=== PATIENT | female | born 1990 | race Caucasian/White ===

== ENCOUNTER 2019-04-07 11:27 | Inpatient (IN) | payer OTHER ==
[~2019-04-07] VITALS: Ht 149.9 cm; Wt 90.5 kg
[2019-04-13] MEDS: D5%-LACTATED RINGERS 1,000 ML IV SCH ×2 (06:50→14:50)
[2019-04-13] MEDS ORDERED: OXYTOCIN 30U/ 0.9% NaCL 500ML 500 ML IV ONE (06:50)
[2019-04-13] MEDS ORDERED: ONDANSETRON 2MG/ML, 2ML IVPush PRN (07:00)
[2019-04-13] MEDS ORDERED: FENTANYL PF 100 MCG/2ML IV PRN (07:00)
[2019-04-13] MEDS ORDERED: SODIUM CHLORIDE FLUSH 10ML SYR IVF PRN (07:00)
[2019-04-13] MEDS ORDERED: CALCIUM CARBONATE 500 MG TAB.CHEW PO PRN (07:00)
[2019-04-13] MEDS ORDERED: TERBUTALINE 1 MG/ML, 1ML SQ PRN (07:00)
[2019-04-13] MEDS ORDERED: TERBUTALINE 1 MG/ML, 1ML IVPush PRN (07:00)
[2019-04-13] MEDS: PLEASE ENTER HEIGHT AND WEIGHT MC SCH ×2 (07:30→15:30)
[2019-04-13 07:45] LABS: BASOPHILS # (AUTO) 0.03 x10^3/uL (0-0.1); BASOPHILS % (AUTO) 0 % (0-1); EOSINOPHILS # (AUTO) 0.04 x10^3/uL (0-0.4); EOSINOPHILS % (AUTO) 1 % (1-7); LYMPHOCYTES # (AUTO) 1.64 x10^3/uL (1-3.4); LYMPHOCYTES % (AUTO) 19 % (22-44); MD NO; MEAN CORPUSCULAR HEMOGLOBIN 27.3 pg (27.0-34.8); MEAN CORPUSCULAR HGB CONC 32.5 g/dL (32.4-35.8); MEAN CORPUSCULAR VOLUME 84.2 fL (80-100); MEAN PLATELET VOLUME 7.6 fL (7.4-10.4); MONOCYTES # (AUTO) 0.51 x10^3/uL (0.2-0.8); MONOCYTES % (AUTO) 6 % (2-9); NEUTROPHILS # (AUTO) 6.59 x10^3/uL (1.8-6.8); NEUTROPHILS % (AUTO) 75 % (42-75); PLATELET COUNT 384 x10^3/uL (130-400); RED BLOOD COUNT 3.89 x10^6/uL (3.82-5.3); RED CELL DISTRIBUTION WIDTH 16.7 % (9.6-15.2)
[2019-04-13] MEDS ORDERED: OXYTOCIN 30U/ 0.9% NaCL 500ML 500 ML IV PRN (09:09)
[2019-04-13] MEDS ORDERED: OXYTOCIN 30U/ 0.9% NaCL 500ML 500 ML ONE ×2 (10:15→17:07)
[2019-04-13] MEDS ORDERED: NEWBORN KIT ONE (10:15)
[2019-04-13] MEDS ORDERED: CALCIUM CARBONATE 500 MG TAB.CHEW ONE (10:21)
[2019-04-13] MEDS: LACTATED RINGERS 1,000 ML IV SCH ×2 (11:05→14:50)
[2019-04-13] MEDS ORDERED: LIDOCAINE 1%, 20ML ONE (16:33)
[2019-04-13] MEDS ORDERED: FENTANYL PF 100 MCG/2ML ONE ×3 (16:45→17:38)
[2019-04-13] MEDS: FENTANYL PF 100 MCG/2ML IVPush PRN ×2 (16:49→17:12)
[2019-04-13] MEDS ORDERED: IBUPROFEN 600 MG TABLET ONE (17:06)
[2019-04-13] MEDS ORDERED: OXYcodone/APAP 5/325MG TABLET ONE (17:07)
[2019-04-13] MEDS: OXYTOCIN 30U/ 0.9% NaCL 500ML 500 ML IV SCH (17:27)
[2019-04-13] MEDS ORDERED: SIMETHICONE 80 MG CHEW TAB PO PRN (17:30)
[2019-04-13] MEDS ORDERED: MISOPROSTOL 200 MCG TABLET PR PRN (17:30)
[2019-04-13] MEDS ORDERED: ACETAMINOPHEN 325 MG TABLET PO PRN (17:30)
[2019-04-13] MEDS ORDERED: MEASLES,MUMPS&RUBELLA VACC/PF 0.5 ML SQ-VACC PRN (17:30)
[2019-04-13] MEDS ORDERED: ONDANSETRON 2MG/ML, 2ML IV PRN (17:30)
[2019-04-13] MEDS ORDERED: OXYcodone/APAP 5/325MG TABLET PO PRN (17:30)
[2019-04-13] MEDS ORDERED: METOCLOPRAMIDE 5 MG/ML, 2ML IV PRN (17:30)
[2019-04-13] MEDS ORDERED: BISACODYL 10 MG SUPP PR PRN (17:30)
[2019-04-13] MEDS: IBUPROFEN 600 MG TABLET PO PRN ×2 (17:31→23:36)
[2019-04-13] MEDS: OXYcodone/APAP 5/325MG TABLET PO PRN (17:31)
[2019-04-13] MEDS ORDERED: CEFAZOLIN 2,000 MG in SODIUM CHLORIDE 0.9% 50 ML IVPB SCH ×2 (18:00→18:30)
[2019-04-13 20:00] VITALS: BP 105/71
[2019-04-13] MEDS: DOCUSATE 100 MG CAPSULE PO PRN (23:37)
[2019-04-13 23:40] VITALS: BP 91/59
[2019-04-14 00:39] LABS: MEAN CORPUSCULAR HEMOGLOBIN 27.3 pg (27.0-34.8); MEAN CORPUSCULAR HGB CONC 32.4 g/dL (32.4-35.8); MEAN CORPUSCULAR VOLUME 84.3 fL (80-100); MEAN PLATELET VOLUME 7.6 fL (7.4-10.4); PLATELET COUNT 355 x10^3/uL (130-400); RED BLOOD COUNT 3.01 x10^6/uL (3.82-5.3); RED CELL DISTRIBUTION WIDTH 16.3 % (9.6-15.2)
[2019-04-14 01:13] LABS: MD YES
[2019-04-14 01:15] LABS: BAND#(MANUAL) 0.33 x10^3/uL; BANDS%(MANUAL) 2 % (0-7); LYMPH#(MANUAL) 1.84 x10^3/uL (1-3.4); LYMPHS% (MANUAL) 11 % (22-44); MONOS#(MANUAL) 0.33 x10^3/uL (0.3-2.7); MONOS% (MANUAL) 2 % (2-9); SEGS% (MANUAL) 85 % (42-75)
[2019-04-14 01:16] LABS: <PLATELET ESTIMATE> ADEQUATE; <PLT MORPHOLOGY> NORMAL PLT MORPH; ANISOCYTOSIS 1+
[2019-04-14] MEDS: OXYTOCIN 30U/ 0.9% NaCL 500ML 500 ML IV SCH ×3 (03:27→23:27)
[2019-04-14 04:00] VITALS: BP 96/64
[2019-04-14] MEDS: IBUPROFEN 600 MG TABLET PO PRN ×3 (05:05→19:51)
[2019-04-14 05:51] LABS: CREATININE 0.49 mg/dL (0.55-1.02)
[2019-04-14] MEDS: LEVOTHYROXINE 50 MCG TABLET PO SCH (06:02)
[2019-04-14] MEDS: DOCUSATE 100 MG CAPSULE PO PRN (07:49)
[2019-04-14] MEDS: PRENATAL VIT/IRON/FA 1 EACH TABLET PO SCH (07:49)
[2019-04-14] MEDS: OXYcodone/APAP 5/325MG TABLET PO PRN ×2 (07:50→13:22)
[2019-04-14 08:05] VITALS: BP 102/68
[2019-04-14 12:20] VITALS: BP 96/56
[2019-04-14 19:45] VITALS: BP 86/55
[2019-04-15 06:01] LABS: MEAN CORPUSCULAR HEMOGLOBIN 27.9 pg (27.0-34.8); MEAN CORPUSCULAR HGB CONC 32.6 g/dL (32.4-35.8); MEAN CORPUSCULAR VOLUME 85.7 fL (80-100); MEAN PLATELET VOLUME 7.7 fL (7.4-10.4); PLATELET COUNT 316 x10^3/uL (130-400); RED BLOOD COUNT 2.98 x10^6/uL (3.82-5.3); RED CELL DISTRIBUTION WIDTH 17.1 % (9.6-15.2)
[2019-04-15] MEDS: IBUPROFEN 600 MG TABLET PO PRN ×2 (06:03→11:57)
[2019-04-15] MEDS: LEVOTHYROXINE 50 MCG TABLET PO SCH (06:03)
[2019-04-15 06:34] LABS: BASOPHILS # (AUTO) 0.04 x10^3/uL (0-0.1); BASOPHILS % (AUTO) 0 % (0-1); EOSINOPHILS # (AUTO) 0.21 x10^3/uL (0-0.4); EOSINOPHILS % (AUTO) 2 % (1-7); LYMPHOCYTES # (AUTO) 2.93 x10^3/uL (1-3.4); LYMPHOCYTES % (AUTO) 26 % (22-44); MD SCAN; MONOCYTES # (AUTO) 0.55 x10^3/uL (0.2-0.8); MONOCYTES % (AUTO) 5 % (2-9); NEUTROPHILS # (AUTO) 7.59 x10^3/uL (1.8-6.8); NEUTROPHILS % (AUTO) 67 % (42-75)
[2019-04-15 08:30] VITALS: BP 100/67
[2019-04-15] MEDS: DOCUSATE 100 MG CAPSULE PO PRN (08:38)
[2019-04-15] MEDS: OXYcodone/APAP 5/325MG TABLET PO PRN ×3 (08:38→15:37)
[2019-04-15] MEDS: PRENATAL VIT/IRON/FA 1 EACH TABLET PO SCH (08:38)
[2019-04-15] MEDS ORDERED: OXYC-302 PO (11:45)
[2019-04-15] MEDS ORDERED: DOCU-131 PO (11:45)
[2019-04-15] MEDS ORDERED: IBUP-1222 PO (11:45)
== END 2019-04-15 15:15 | disposition home or self-care (01) | DRG 768 ==
LOC: LDIP 04-13 06:07 → 2NW 04-13 19:57
PROVIDERS: ADMIT Obstetrics & Gynecology; ATTEND Obstetrics & Gynecology
PROC: 10E0XZZ Delivery of Products of Conception, External Approach (ICD-10-PCS; principal; 2019-04-13)
PROC: 0DQR0ZZ Repair Anal Sphincter, Open Approach (ICD-10-PCS; 2019-04-13)
DX: O48.0 Post-term pregnancy (principal); Z37.0 Single live birth; O70.20 Third degree perineal laceration during delivery, unspecified; D62 Acute posthemorrhagic anemia; O99.12 Other diseases of the blood and blood-forming organs and certain disorders involving the immune mechanism complicating childbirth; O69.81X0 Labor and delivery complicated by cord around neck, without compression, not applicable or unspecified; O99.344 Other mental disorders complicating childbirth; O99.284 Endocrine, nutritional and metabolic diseases complicating childbirth; Z3A.40 40 weeks gestation of pregnancy; O99.214 Obesity complicating childbirth; E03.9 Hypothyroidism, unspecified; F32.9 Major depressive disorder, single episode, unspecified; Z82.49 Family history of ischemic heart disease and other diseases of the circulatory system; O90.81 Anemia of the puerperium; D72.828 Other elevated white blood cell count
CPT/HCPCS: 36415; 82565; 85025; 86850; 86900; G0378; J0690; J3010; J2590; J7120